=== PATIENT | male | born 1960 | race African-American/Black ===

== ENCOUNTER 2017-10-13 16:08 | Inpatient (IN) ==
[2017-10-13] MEDS ORDERED: hydrALAZINE 20 MG/1 ML VIAL IV STA (17:30)
[2017-10-13] MEDS ORDERED: KETOROLAC 30 MG/1 ML VIAL IV STA (17:30)
[2017-10-13] MEDS ORDERED: PANTOPRAZOLE 40 MG VIAL IV STA (17:30)
[2017-10-13] MEDS ORDERED: hydrALAZINE 20 MG/1 ML VIAL ONE (17:31)
[2017-10-13] MEDS ORDERED: KETOROLAC 30 MG/1 ML VIAL ONE (17:36)
[2017-10-13] MEDS ORDERED: PANTOPRAZOLE 40 MG VIAL IV ONE (17:36)
[2017-10-13 17:55] LABS: Albumin 3.6 G/DL (3.4-5.0); Bilirubin,Total 0.6 MG/DL (0.2-1.0); Magnesium 2.2 MG/DL (1.8-2.4); Osmolality,Calculated 278.3 MOS/KG (273-304); Potassium 3.3 MMOL/L (3.5-5.1); Total Protein 6.8 G/DL (6.4-8.3); Troponin I Only 0.016 NG/ML (0.00-0.045)
[2017-10-13] MEDS ORDERED: POTASSIUM CHLORIDE 20 MEQ TABLET PO STA (18:12)
[2017-10-13 18:18] LABS: Basophils # 0.1 10*3/uL (0.0-0.2); Basophils % 0.9 % (0.0-0.8); Eosinophils # 0.1 10*3/uL (0.0-0.87); Eosinophils % 1.5 % (0.00-10.9); Hemoglobin 15.5 GM/DL (14.0-18.0); Immature Granulocytes % 0.2 %; Immature Granulocytes Absolute 0.01 #; Lymphocytes # 1.5 10*3/uL (1.4-4.0); Lymphocytes % 25.2 % (21.2-54.2); Mean Corpuscular HGB Conc 34.4 GM/DL (32-36); Mean Corpuscular Hemoglobin 29 PG (27-34); Mean Platelet Volume 11.4 FL (9.6-12.0); Monocytes # 0.5 10*3/uL (0.11-0.8); Monocytes % 8.4 % (1.7-12.7); Neutrophils # 3.7 10*3/uL (1.4-7.4); Neutrophils % 63.8 % (38.7-73.9); Platelet Count 225 T/CUMM (130-400); Red Blood Count 5.36 MC/CUMM (3.8-5.5); Red Cell Distribution Width 12.8 % (9.3-17.3); White Blood Count 5.8 T/CUMM (4-12)
[2017-10-13] MEDS ORDERED: POTASSIUM CHLORIDE 20 MEQ TABLET PO ONE (18:19)
[2017-10-13 18:34] LABS: Lactic Acid 0.9 MMOL/L (0.4-2.0)
[2017-10-13 18:44] LABS: Apearance,Urine CLEAR (Clear); Bacteria,Urine Occasional /HPF (Few); Bilirubin,Urine Negative (Negative); Blood, Urine Negative (Negative); Glucose,Urine (UA) Negative (Negative); Ketones,Urine Negative (Negative); Mucus,Urine Occasional /LPF (Occasional); Nitrite,Urine Negative (Negative); Protein,Urine Negative; RBC,Urine 1 /HPF (0-4); Squamous Epithelial Cell,Urine Occasional /HPF (0-10); Urine Color Yellow (Yellow); Urine Specific Gravity 1.009 (1.001-1.035); Urine Urobilinogen < 2.0 EU/DL (0.2-1.0); WBC,Urine <1 /HPF (0-6)
[2017-10-13] MEDS ORDERED: LABETALOL 20 MG/4 ML SYRINGE IV STA (18:57)
[2017-10-13] MEDS ORDERED: LABETALOL 20 MG/4 ML SYRINGE IV ONE (19:02)
[2017-10-13] MEDS ORDERED: niCARdipine 25 MG/10 ML VIAL IV ONE (19:41)
[2017-10-13] MEDS ORDERED: niCARdipine INJ 25 MG in SODIUM CHLORIDE 0.9% 240 ML IV SCH (20:00)
[2017-10-13] MEDS ORDERED: ACETAMINOPHEN 325 MG TABLET PO PRN (20:23)
[2017-10-13] MEDS ORDERED: ONDANSETRON 4 MG/2 ML VIAL IV PRN (20:23)
[2017-10-13 20:48] LABS: Barbiturates Screen,Urine Negative (Negative); Benzodiazepines Screen,Urine Negative (Negative); Cannabinoid Screen,Urine Negative (Negative); Opiate Screen,Urine Negative (Negative); Phencyclidine Screen,Urine Negative (Negative)
[2017-10-13 20:49] LABS: Magnesium 2.1 MG/DL (1.8-2.4); Thyroid Stimulating Hormone 1.71 uIU/ml (0.358-3.74)
[2017-10-13] MEDS: CARVEDILOL 12.5 MG TABLET PO SCH (21:46)
[2017-10-13] MEDS: ENOXAPARIN 40 MG/0.4 ML SYRINGE SUBCUT SCH (21:48)
[2017-10-14 02:19] LABS: Calcium 9.1 MG/DL (8.5-10.1); Osmolality,Calculated 281.1 MOS/KG (273-304); Potassium 3.6 MMOL/L (3.5-5.1); Risk Ratio 1.86; VLDL CHOLESTEROL 15.6 MG/DL
[2017-10-14] MEDS: CARVEDILOL 12.5 MG TABLET PO SCH ×2 (08:33→21:03)
[2017-10-14] MEDS ORDERED: ALBUTEROL 2.5 MG/3 ML NEB RESP TX PRN (11:54)
[2017-10-14] MEDS: amLODIPine 5 MG TABLET PO SCH (14:06)
[2017-10-14] MEDS: ALBUTEROL 2.5 MG/3 ML NEB RESP TX SCH ×2 (16:00→19:39)
[2017-10-14] MEDS: FLUTICASONE/SALMETEROL 500-50 DISKUS 14 DOSE INH SCH (21:03)
[2017-10-14] MEDS: ENOXAPARIN 40 MG/0.4 ML SYRINGE SUBCUT SCH (21:04)
[2017-10-15] MEDS: ALBUTEROL 2.5 MG/3 ML NEB RESP TX SCH ×7 (00:25→23:11)
[2017-10-15] MEDS: CARVEDILOL 12.5 MG TABLET PO SCH ×2 (09:06→22:11)
[2017-10-15] MEDS: amLODIPine 5 MG TABLET PO SCH (09:07)
[2017-10-15] MEDS: hydroCHLOROthiazide 25 MG TABLET PO SCH (11:04)
[2017-10-15] MEDS: FLUTICASONE/SALMETEROL 500-50 DISKUS 14 DOSE INH SCH ×2 (11:14→22:10)
[2017-10-15] MEDS: LISINOPRIL 20 MG TABLET PO SCH (15:39)
[2017-10-15] MEDS: ENOXAPARIN 40 MG/0.4 ML SYRINGE SUBCUT SCH (22:12)
[2017-10-16] MEDS: ALBUTEROL 2.5 MG/3 ML NEB RESP TX SCH ×3 (03:11→10:17)
[2017-10-16] MEDS: hydroCHLOROthiazide 25 MG TABLET PO SCH (10:28)
[2017-10-16] MEDS: LISINOPRIL 20 MG TABLET PO SCH (10:28)
[2017-10-16] MEDS: FLUTICASONE/SALMETEROL 500-50 DISKUS 14 DOSE INH SCH (10:29)
[2017-10-16] MEDS: CARVEDILOL 12.5 MG TABLET PO SCH (10:29)
[2017-10-16 13:11] VITALS: BP 170/90
== END 2017-10-16 13:17 | disposition home or self-care (01) | DRG 395 ==
LOC: N.ED 16:08 → N.EDINP 19:49 → N.CC 20:22 → N.2E 10-14 15:07
PROVIDERS: ADMIT Internal Medicine; ATTEND Internal Medicine

== ENCOUNTER 2019-10-04 08:02 | Observation (INO) ==
[2019-10-04] MEDS ORDERED: methylPREDNISolone SOD SUC 125 MG/2 ML VIAL IV STA (08:17)
[2019-10-04] MEDS ORDERED: ALBUTEROL 2.5 MG/3 ML NEB RESP TX SCH (08:30)
[2019-10-04] MEDS ORDERED: hydrALAZINE 20 MG/1 ML VIAL IV STA (08:44)
[2019-10-04 08:54] LABS: Basophils % 0.6 % (0.0-0.8); Hematocrit 45.5 VOL% (42.0-52.0); Hemoglobin 15.9 GM/DL (14.0-18.0); Immature Granulocytes % 0.6 %; Immature Granulocytes Absolute 0.04 #; Lymphocytes # 0.5 10*3/uL (1.4-4.0); Lymphocytes % 7.6 % (21.2-54.2); Mean Corpuscular HGB Conc 34.9 GM/DL (32-36); Mean Corpuscular Volume 84.9 FL (87-102); Monocytes % 10.8 % (1.7-12.7); Neutrophils % 80.4 % (38.7-73.9); Platelet Count 174 T/CUMM (130-400); Red Blood Count 5.36 MC/CUMM (3.8-5.5); Red Cell Distribution Width 12.3 % (9.3-17.3); White Blood Count 6.2 T/CUMM (4-12)
[2019-10-04 09:12] LABS: Albumin 3.6 G/DL (3.4-5.0); Bilirubin,Total 1.4 MG/DL (0.2-1.0); Calcium 8.4 MG/DL (8.5-10.1); Osmolality,Calculated 271.8 MOS/KG (273-304); Total Protein 6.9 G/DL (6.4-8.3)
[2019-10-04] MEDS ORDERED: NITROGLYCERIN SL 0.4 MG TABLET SL ONE (11:07)
[2019-10-04] MEDS ORDERED: NITROGLYCERIN SL 0.4 MG TABLET SL STA (11:10)
[2019-10-04] MEDS ORDERED: ONDANSETRON 4 MG/2 ML VIAL IV PRN (11:34)
[2019-10-04] MEDS ORDERED: ACETAMINOPHEN 325 MG TABLET PO PRN (11:34)
[2019-10-04] MEDS ORDERED: DOCUSATE SODIUM 100 MG CAPSULE PO PRN (11:34)
[2019-10-04] MEDS ORDERED: ENOXAPARIN 40 MG/0.4 ML SYRINGE SUBCUT SCH (12:00)
[2019-10-04 12:03] LABS: Risk Ratio 1.57; Thyroid Stimulating Hormone 1.3 uIU/ml (0.358-3.74)
[2019-10-04] MEDS: AZITHROMYCIN 250 MG TABLET PO SCH (14:43)
[2019-10-04] MEDS: METOPROLOL TARTRATE 25 MG TABLET PO SCH ×2 (14:43→21:17)
[2019-10-04] MEDS: SODIUM CHLORIDE 0.9% 1,000 ML IV SCH ×2 (14:43→23:18)
[2019-10-04 15:48] LABS: Apearance,Urine CLEAR (Clear); Bilirubin,Urine Negative (Negative); Blood, Urine Small mg/dL (Negative); Glucose,Urine (UA) Negative (Negative); Hyaline Casts,Urine 3 /LPF (0-3); Ketones,Urine 5 mg/dL (Negative); Mucus,Urine Occasional /LPF (Occasional); Nitrite,Urine Negative (Negative); Protein,Urine Negative; RBC,Urine 2 /HPF (0-4); Urine Color Yellow (Yellow); Urine Specific Gravity 1.015 (1.001-1.035); WBC,Urine 1 /HPF (0-6)
[2019-10-04] MEDS: ALBUTEROL/IPRATROPIUM 3 ML NEB RESP TX PRN (19:30)
[2019-10-04] MEDS: methylPREDNISolone SOD SUC 40 MG/1 ML VIAL IV SCH (21:17)
[2019-10-04] MEDS ORDERED: cloNIDine 0.1 MG TABLET PO ONE (23:43)
[2019-10-05] MEDS ORDERED: hydrALAZINE 20 MG/1 ML VIAL IV PRN (04:56)
[2019-10-05] MEDS: methylPREDNISolone SOD SUC 40 MG/1 ML VIAL IV SCH (05:21)
[2019-10-05 05:40] LABS: Hematocrit 40.7 VOL% (42.0-52.0); Hemoglobin 13.9 GM/DL (14.0-18.0); Immature Granulocytes % 0.5 %; Immature Granulocytes Absolute 0.03 #; Lymphocytes # 0.4 10*3/uL (1.4-4.0); Mean Corpuscular HGB Conc 34.2 GM/DL (32-36); Mean Platelet Volume 11.7 FL (9.6-12.0); Monocytes % 9.1 % (1.7-12.7); Neutrophils % 83.4 % (38.7-73.9); Platelet Count 180 T/CUMM (130-400); Red Blood Count 4.73 MC/CUMM (3.8-5.5); Red Cell Distribution Width 12.3 % (9.3-17.3); White Blood Count 6.3 T/CUMM (4-12)
[2019-10-05] MEDS: ALBUTEROL/IPRATROPIUM 3 ML NEB RESP TX PRN ×2 (05:48→10:03)
[2019-10-05 05:56] LABS: Calcium 8.2 MG/DL (8.5-10.1); Osmolality,Calculated 285.1 MOS/KG (273-304)
[2019-10-05] MEDS: AZITHROMYCIN 250 MG TABLET PO SCH (08:35)
[2019-10-05] MEDS: METOPROLOL TARTRATE 25 MG TABLET PO SCH (08:36)
[2019-10-05] MEDS ORDERED: amLODIPine 10 MG TABLET PO SCH (09:00)
[2019-10-05] MEDS ORDERED: NF- (Fluticasone Furoate-Vilanterol [Breo Ellipta] 1 inh) INH SCH (09:00)
[2019-10-05] MEDS ORDERED: amLODIPine 10 MG TABLET PO ONE (09:00)
[2019-10-05] MEDS ORDERED: PANTOPRAZOLE 40 MG TABLET PO SCH (09:00)
[2019-10-05] MEDS: SODIUM CHLORIDE 0.9% 1,000 ML IV SCH (11:12)
[2019-10-05 12:19] VITALS: BP 176/93
== END 2019-10-05 12:45 | disposition home or self-care (01) ==
LOC: EDUNIT# → N.ED 08:02 → N.EDINP 08:02 → N.TELES 13:05
PROVIDERS: ADMIT Family Medicine; ATTEND Family Medicine

== ENCOUNTER 2021-04-02 18:04 | Inpatient (IN) ==
[2021-04-02] MEDS ORDERED: methylPREDNISolone SOD SUC 125 MG/2 ML VIAL IV STA (19:21)
[2021-04-02] MEDS ORDERED: MORPHINE 4 MG/1 ML VIAL IV STA (19:21)
[2021-04-02] MEDS ORDERED: hydrALAZINE 20 MG/1 ML VIAL IV STA (19:21)
[2021-04-02] MEDS ORDERED: ONDANSETRON 4 MG/2 ML VIAL IV STA (19:21)
[2021-04-02] MEDS ORDERED: FUROSEMIDE 100 MG/10 ML VIAL IV STA (19:21)
[2021-04-02] MEDS ORDERED: ASPIRIN 325 MG TABLET PO STA (19:21)
[2021-04-02] MEDS ORDERED: ALBUTEROL NEB SOLN 5 MG/ML 20 ML/BOTTLE CONT NEB SCH (19:30)
[2021-04-02] MEDS ORDERED: NITROGLYCERIN 2% OINT 1 INCH/GM PACK TOP ONE (19:31)
[2021-04-02 19:46] LABS: Basophils % 0.8 % (0.0-0.8); Eosinophils # 0.2 10*3/uL (0.0-0.87); Eosinophils % 3.8 % (0.00-10.9); Hematocrit 50.5 VOL% (42.0-52.0); Hemoglobin 16.8 GM/DL (14.0-18.0); Immature Granulocytes % 0.2 %; Immature Granulocytes Absolute 0.01 #; Lymphocytes # 1.1 10*3/uL (1.4-4.0); Lymphocytes % 22.2 % (21.2-54.2); Mean Corpuscular HGB Conc 33.3 GM/DL (32-36); Mean Corpuscular Volume 83.7 FL (87-102); Mean Platelet Volume 11.5 FL (9.6-12.0); Monocytes % 7.6 % (1.7-12.7); Neutrophils % 65.4 % (38.7-73.9); Platelet Count 271 T/CUMM (130-400); Red Blood Count 6.03 MC/CUMM (3.8-5.5); Red Cell Distribution Width 12.9 % (9.3-17.3)
[2021-04-02 19:52] LABS: PT Patient Result 11.4 SECS (10.5-12.0)
[2021-04-02 20:14] LABS: Alanine Aminotransferase 16 U/L (16-61); Albumin 3.8 G/DL (3.4-5.0); Alkaline Phosphatase 66 U/L (45-117); Aspartate Amino Transferase 17 U/L (0-37); Bilirubin,Total < 0.39 MG/DL (0.2-1.0); Blood Urea Nitrogen 12 MG/DL (7-18); Calcium 8.7 MG/DL (8.5-10.1); Carbon Dioxide 27 MMOL/L (21-32); Estimated Glom Filtration Rate 95 ML/MIN; Glucose 118 MG/DL (74-106); Osmolality,Calculated 281.3 MOS/KG (273-304); Potassium 3.4 MMOL/L (3.5-5.1); Sodium 141 MMOL/L (136-145); Total Protein 6.8 G/DL (6.4-8.2)
[2021-04-02] MEDS ORDERED: niCARdipine 25 MG/10 ML VIAL IV ONE (20:28)
[2021-04-02] MEDS ORDERED: POTASSIUM CHLORIDE 20 MEQ TABLET PO STA (20:36)
[2021-04-02] MEDS: niCARdipine INJ 25 MG in SODIUM CHLORIDE 0.9% 240 ML IV PRN ×2 (20:46→21:02)
[2021-04-02 21:04] LABS: Bacteria,Urine Occasional /HPF (Few); Bilirubin,Urine Negative (Negative); Blood, Urine Negative (Negative); Glucose,Urine (UA) Negative (Negative); Ketones,Urine Negative (Negative); Nitrite,Urine Negative (Negative); Protein,Urine Negative; RBC,Urine 1 /HPF (0-4); Urine Appearance CLEAR (Clear); Urine Color Straw (Yellow); Urine Specific Gravity 1.005 (1.001-1.035); Urine Urobilinogen < 2.0 EU/DL (0.2-1.0)
[2021-04-02] MEDS ORDERED: DEXTROSE 50% 25 GM/50 ML VIAL IV PRN (22:21)
[2021-04-02] MEDS ORDERED: NICOTINE 21 MG/24 HR PATCH TRANSDERM PRN (22:21)
[2021-04-02] MEDS ORDERED: MORPHINE 4 MG/1 ML VIAL IV PRN (22:21)
[2021-04-02] MEDS ORDERED: GLUCAGON 1 MG VIAL IM PRN (22:21)
[2021-04-02] MEDS ORDERED: ONDANSETRON 4 MG/2 ML VIAL IV PRN (22:21)
[2021-04-02 23:22] LABS: ABG Base Excess 2.1 MMOL/L (-2.5-2.5); ABG HCO3 26.3 MMOL/L (20-26); ABG Oxygen Saturation 97.9 % (95-100); ABG PCO2 37.5 MM HG (35-48); ABG PH 7.447 (7.35-7.45); ABG PO2 94.9 MM HG (80-95); ABG TCO2 21.4 MMOL/L (23-27); Allen Test Positive
[2021-04-03] MEDS: niCARdipine INJ 50 MG in SODIUM CHLORIDE 0.9% 480 ML IV PRN ×2 (01:22→07:42)
[2021-04-03] MEDS: ALBUTEROL/IPRATROPIUM 3 ML NEB RESP TX SCH ×4 (01:58→19:14)
[2021-04-03 05:06] LABS: Calcium 8.4 MG/DL (8.5-10.1); Osmolality,Calculated 280.4 MOS/KG (273-304); Potassium 3.6 MMOL/L (3.5-5.1)
[2021-04-03] MEDS ORDERED: methylPREDNISolone SOD SUC 40 MG/1 ML VIAL IV SCH (09:00)
[2021-04-03] MEDS: POTASSIUM CHLORIDE 20 MEQ/15 ML UDCUP PER TUBE PRN ×2 (09:33→13:21)
[2021-04-03] MEDS: NICOTINE 21 MG/24 HR PATCH TRANSDERM SCH ×2 (09:33→09:38)
[2021-04-03] MEDS: carvediloL 6.25 MG TABLET PO SCH ×2 (09:34→21:17)
[2021-04-03] MEDS: ASPIRIN EC 81 MG TABLET PO SCH (09:34)
[2021-04-03] MEDS: ENOXAPARIN 40 MG/0.4 ML SYRINGE SUBCUT SCH (09:34)
[2021-04-03] MEDS: amLODIPine 10 MG TABLET PO SCH (09:34)
[2021-04-03] MEDS: CHLORTHALIDONE 25 MG TABLET PO SCH (10:16)
[2021-04-04] MEDS: ALBUTEROL/IPRATROPIUM 3 ML NEB RESP TX SCH ×4 (00:37→19:50)
[2021-04-04 05:42] LABS: Calcium 8.8 MG/DL (8.5-10.1); Osmolality,Calculated 280.3 MOS/KG (273-304); Potassium 3.4 MMOL/L (3.5-5.1)
[2021-04-04] MEDS: ENOXAPARIN 40 MG/0.4 ML SYRINGE SUBCUT SCH (08:39)
[2021-04-04] MEDS: POTASSIUM CHLORIDE 20 MEQ/15 ML UDCUP PER TUBE PRN ×3 (08:39→11:08)
[2021-04-04] MEDS: ASPIRIN EC 81 MG TABLET PO SCH (08:40)
[2021-04-04] MEDS: predniSONE 10 MG TABLET PO SCH (08:40)
[2021-04-04] MEDS: carvediloL 6.25 MG TABLET PO SCH (08:40)
[2021-04-04] MEDS: CHLORTHALIDONE 25 MG TABLET PO SCH (08:40)
[2021-04-04] MEDS: amLODIPine 10 MG TABLET PO SCH (08:40)
[2021-04-04] MEDS: NICOTINE 21 MG/24 HR PATCH TRANSDERM SCH (08:41)
[2021-04-04] MEDS ORDERED: carvediloL 6.25 MG TABLET PO ONE (08:45)
[2021-04-04] MEDS ORDERED: ALBUTEROL 2.5 MG/3 ML NEB RESP TX PRN (12:55)
[2021-04-04] MEDS: carvediloL 12.5 MG TABLET PO SCH (20:53)
[2021-04-05] MEDS: ALBUTEROL/IPRATROPIUM 3 ML NEB RESP TX SCH ×2 (01:22→07:49)
[2021-04-05 06:35] LABS: Basophils # 0.1 10*3/uL (0.0-0.2); Basophils % 0.9 % (0.0-0.8); Eosinophils # 0.1 10*3/uL (0.0-0.87); Eosinophils % 1.9 % (0.00-10.9); Hematocrit 46.1 VOL% (42.0-52.0); Hemoglobin 16.1 GM/DL (14.0-18.0); Immature Granulocytes % 0.3 %; Immature Granulocytes Absolute 0.02 #; Lymphocytes # 1.3 10*3/uL (1.4-4.0); Lymphocytes % 22.7 % (21.2-54.2); Mean Corpuscular HGB Conc 34.9 GM/DL (32-36); Mean Corpuscular Volume 83.7 FL (87-102); Mean Platelet Volume 11.2 FL (9.6-12.0); Monocytes % 9.3 % (1.7-12.7); Neutrophils % 64.9 % (38.7-73.9); Platelet Count 244 T/CUMM (130-400); Red Blood Count 5.51 MC/CUMM (3.8-5.5); Red Cell Distribution Width 12.9 % (9.3-17.3); White Blood Count 5.8 T/CUMM (4-12)
[2021-04-05 07:05] LABS: Risk Ratio 2.05; VLDL CHOLESTEROL 12.4 MG/DL
[2021-04-05 07:10] LABS: Calcium 8.8 MG/DL (8.5-10.1); Osmolality,Calculated 282.3 MOS/KG (273-304); Potassium 3.6 MMOL/L (3.5-5.1)
[2021-04-05] MEDS: POTASSIUM CHLORIDE 20 MEQ/15 ML UDCUP PER TUBE PRN (10:12)
[2021-04-05] MEDS: CHLORTHALIDONE 25 MG TABLET PO SCH (10:13)
[2021-04-05] MEDS: predniSONE 10 MG TABLET PO SCH (10:13)
[2021-04-05] MEDS: amLODIPine 10 MG TABLET PO SCH (10:13)
[2021-04-05] MEDS: carvediloL 12.5 MG TABLET PO SCH ×2 (10:14→21:22)
[2021-04-05] MEDS: ASPIRIN EC 81 MG TABLET PO SCH (10:14)
[2021-04-05] MEDS: NICOTINE 21 MG/24 HR PATCH TRANSDERM SCH (10:15)
[2021-04-05] MEDS: ENOXAPARIN 40 MG/0.4 ML SYRINGE SUBCUT SCH (10:16)
[2021-04-05] MEDS ORDERED: LEVALBUTEROL 0.31 MG/3 ML NEB RESP TX SCH (12:04)
[2021-04-05] MEDS ORDERED: ALBUTEROL/IPRATROPIUM 3 ML NEB RESP TX PRN (12:05)
[2021-04-05] MEDS: ceFAZolin 2,000 MG/50 ML DUPLEX IV SCH ×2 (13:23→21:23)
[2021-04-05] MEDS: LEVALBUTEROL 1.25 MG/3 ML NEB RESP TX SCH ×3 (14:02→19:29)
[2021-04-05] MEDS: BUDESONIDE/FORMOTEROL 160-4.5 INHALER 6 GM INH SCH ×2 (14:50→21:22)
[2021-04-06] MEDS: LEVALBUTEROL 1.25 MG/3 ML NEB RESP TX SCH ×3 (00:50→07:42)
[2021-04-06 05:33] LABS: Basophils % 0.5 % (0.0-0.8); Eosinophils # 0.1 10*3/uL (0.0-0.87); Eosinophils % 1.1 % (0.00-10.9); Hematocrit 45.9 VOL% (42.0-52.0); Hemoglobin 15.8 GM/DL (14.0-18.0); Immature Granulocytes % 0.3 %; Immature Granulocytes Absolute 0.02 #; Lymphocytes # 1.7 10*3/uL (1.4-4.0); Lymphocytes % 26.6 % (21.2-54.2); Mean Corpuscular HGB Conc 34.4 GM/DL (32-36); Mean Corpuscular Volume 83.5 FL (87-102); Neutrophils % 63.5 % (38.7-73.9); Platelet Count 240 T/CUMM (130-400); Red Cell Distribution Width 12.4 % (9.3-17.3); White Blood Count 6.3 T/CUMM (4-12)
[2021-04-06] MEDS: ceFAZolin 2,000 MG/50 ML DUPLEX IV SCH (06:01)
[2021-04-06 06:02] LABS: Calcium 9.1 MG/DL (8.5-10.1); Osmolality,Calculated 278.5 MOS/KG (273-304); Potassium 3.4 MMOL/L (3.5-5.1)
[2021-04-06 08:04] VITALS: BP 158/92
[2021-04-06] MEDS: CHLORTHALIDONE 25 MG TABLET PO SCH (09:18)
[2021-04-06] MEDS: amLODIPine 10 MG TABLET PO SCH (09:18)
[2021-04-06] MEDS: carvediloL 12.5 MG TABLET PO SCH (09:18)
[2021-04-06] MEDS: predniSONE 10 MG TABLET PO SCH (09:18)
[2021-04-06] MEDS: ASPIRIN EC 81 MG TABLET PO SCH (09:18)
[2021-04-06] MEDS: NICOTINE 21 MG/24 HR PATCH TRANSDERM SCH (09:19)
[2021-04-06] MEDS: ENOXAPARIN 40 MG/0.4 ML SYRINGE SUBCUT SCH ×2 (09:19→09:42)
[2021-04-06] MEDS: BUDESONIDE/FORMOTEROL 160-4.5 INHALER 6 GM INH SCH (09:19)
== END 2021-04-06 11:45 | disposition home or self-care (01) | DRG 305 ==
LOC: N.ED 18:04 → SUATTDRO 22:22 → N.EDINP 22:22 → N.ICU 23:02 → N.4E 04-03 14:11
PROVIDERS: ADMIT Internal Medicine; ATTEND Internal Medicine